=== PATIENT | female | born 1965 | race Caucasian/White ===

== ENCOUNTER 2017-02-21 17:36 | Emergency (ER) | payer OTHER ==
[2017-02-21 17:52] VITALS: BMI 28.3
[2017-02-21] MEDS ORDERED: KETOROLAC TROMETHAMINE 30 MG/1 ML VIAL IVPUSH ONE (18:13)
[2017-02-21] MEDS ORDERED: KETOROLAC TROMETHAMINE 30 MG/1 ML VIAL ONE (18:23)
[2017-02-21 18:48] LABS: BASOPHIL 0.3 % (0-2.0); EOSINOPHIL 1.1 % (0-4.5); MCH 29.5 pg (25.7-33.7); MEAN CELL VOLUME 86.9 fl (80-96); MEAN PLT VOLUME 10.3 fl (7.5-11.1); NEUTROPHILS 61.4 % (42.8-82.8); PLATELET COUNT 216 K/MM3 (134-434); RDW 12.7 % (11.6-15.6); WHITE BLOOD COUNT 8.4 K/mm3 (4.0-10.0)
--- NOTE | 2017-02-21 18:50 | PDOC ---
History of Present Illness - History of Present Illness Initial Comments: 02/21/17 19:27 The patient is a 51 year old female with history of hypertension and anemia who presents to the ED complaining of 1 day of constant, midsternal, pressure like chest pain. She states that she fell one week ago. Her pain is worse with bending over. The patient denies shortness of breath, palpitations, nausea, vomiting, or diaphoresis. She did not take anything for pain. She denies family history of cardiac disease. Stress test 1 year ago was negative. <Tiffany Cheema - Last Filed: 02/21/17 19:29> - General History Source: Patient Exam Limitations: No Limitations <Omid Sheikh - Last Filed: 02/21/17 20:20> - General Chief Complaint: Chest Pain Stated Complaint: CHEST PAIN/DIFF BREATHING Time Seen by Provider: 02/21/17 17:52 Past History <Tiffany Cheema - Last Filed: 02/21/17 19:29> - Past Medical History Anemia: Yes Diabetes: Yes (BORDER LINE) HTN: Yes Thyroid Disease: No - Surgical History Abdominal Surgery: No - Psycho/Social/Smoking Cessation Hx Suicidal Ideation: No Smoking History: Never smoked Have you smoked in the past 12 months: No Information on smoking cessation initiated: No Hx Alcohol Use: No Drug/Substance Use Hx: No Substance Use Type: None <Omid Sheikh - Last Filed: 02/21/17 20:20> - Past Medical History Allergies/Adverse Reactions: Allergies Allergy/AdvReac Type Severity Reaction Status Date / Time No Known Drug Allergies Allergy Verified 02/21/17 17:42 Home Medications: Ambulatory Orders Metoprolol Succinate [Toprol Xl -] 75 mg PO DAILY 01/26/15 Amlodipine Besylate [Norvasc -] 10 mg PO DAILY 02/21/17 Ibuprofen 600 mg PO Q6H PRN #20 tablet 02/21/17 Losartan Potassium 100 mg PO HS 02/21/17 Metformin HCl 500 mg PO BID #14 tablet 02/21/17 Review of Systems - Review of Systems Able to Perform ROS?: Yes Comments:: 02/21/17 19:31 GENERAL/CONSTITUTIONAL: No fever or chills. No weakness. HEAD, EYES, EARS, NOSE AND THROAT: No change in vision. No ear pain or discharge. No sore throat CARDIOVASCULAR: +Chest pain. No shortness of breath, lightheadedness, palpitations. RESPIRATORY: No cough, wheezing, or hemoptysis. GASTROINTESTINAL: No nausea, vomiting, diarrhea or constipation. GENITOURINARY: No dysuria, frequency, or change in urination. MUSCULOSKELETAL: No joint or muscle swelling or pain. No neck or back pain. SKIN: No rash NEUROLOGIC: No headache, vertigo, loss of consciousness, or change in strength/ sensation. ENDOCRINE: No increased thirst. No abnormal weight change. HEMATOLOGIC/LYMPHATIC: No anemia, easy bleeding, or history of blood clots. ALLERGIC/IMMUNOLOGIC: No hives or skin allergy. <Tiffany Cheema - Last Filed: 02/21/17 19:29> *Physical Exam - Vital Signs Last Vital Signs Temp Pulse Resp BP Pulse Ox 98.3 F 84 16 164/74 96 02/21/17 17:42 02/21/17 18:46 02/21/17 18:46 02/21/17 18:46 02/21/17 18:46 - Physical Exam Comments: 02/21/17 19:32 GENERAL: Awake, alert, and fully oriented, in no acute distress HEAD: No signs of trauma EYES: PERRLA, EOMI, sclera anicteric, conjunctiva clear ENT: Auricles normal inspection, hearing grossly normal, nares patent, oropharynx clear without exudates. Moist mucosa NECK: Normal ROM, supple, no lymphadenopathy, JVD, or masses LUNGS: Breath sounds equal, clear to auscultation bilaterally. No wheezes, and no crackles HEART: Midsternal chest pain reproducible to palpation. Regular rate and rhythm , normal S1 and S2, no murmurs, rubs or gallops ABDOMEN: Soft, nontender, normoactive bowel sounds. No guarding, no rebound. No masses EXTREMITIES: Normal range of motion, no edema. No clubbing or cyanosis. No cords, erythema, or tenderness NEUROLOGICAL: Cranial nerves II through XII grossly intact. Normal speech, normal gait SKIN: Warm, Dry, normal turgor, no rashes or lesions noted. <Tiffany Cheema - Last Filed: 02/21/17 19:29> - Vital Signs Last Vital Signs Temp Pulse Resp BP Pulse Ox 98.3 F 89 19 196/83 98 02/21/17 17:42 04/14/17 17:42 02/21/17 17:42 02/21/17 17:42 02/21/17 17:42 <Omid Sheikh - Last Filed: 02/21/17 20:20> Heart Score/ECG Review - History History: Slightly suspicious - Electrocardiogram EKG: Normal - Age Age: 45-65 - Risk Factors Risk Factors Heart Score: Yes Hx Hypertension Based on the list above the patient has:: 1-2 risk factors - Troponin Troponin: </= normal limit - Score Heart Score - Total: 2 #1 ECG reviewed & interpreted by me at: 17:45 02/21/17 18:46 NSR 78, Q wave III, no std/antionette, normal axis, normal intervals, QTC 440 msec <Omid Sheikh - Last Filed: 02/21/17 20:20> ED Treatment Course - LABORATORY CBC & Chemistry Diagram: 02/21/17 18:35 02/21/17 18:35 - ADDITIONAL ORDERS Additional order review: Laboratory Results 02/21/17 02/21/17 18:35 18:35 INR 0.96 PTT (Actin FS) 37.8 H Sodium 137 Potassium 4.5 Chloride 103 Carbon Dioxide 29 Anion Gap 5 L BUN 14 D Creatinine 0.6 Creat Clearance w eGFR > 60 Random Glucose 292 H D Calcium 9.6 Total Bilirubin 0.4 AST 43 H ALT 104 H Alkaline Phosphatase 221 H Creatine Kinase 101 Troponin I < 0.02 B-Natriuretic Peptide 32.75 Total Protein 7.3 Albumin 4.0 02/21/17 18:35 RBC 5.17 D MCV 86.9 MCHC 34.0 RDW 12.7 D MPV 10.3 Neutrophils % 61.4 Lymphocytes % 30.2 Monocytes % 7.0 Eosinophils % 1.1 Basophils % 0.3 - Medications Given in the ED: ED Medications Discontinued Medications Generic Name Dose Route Start Last Admin Trade Name Freq PRN Reason Stop Dose Admin Ketorolac Tromethamine 30 mg 02/21/17 18:13 02/21/17 18:41 Toradol Injection - IVPUSH 02/21/17 18:14 30 mg ONCE ONE Administration <Tiffany Cheema - Last Filed: 02/21/17 19:29> - LABORATORY CBC & Chemistry Diagram: 02/21/17 18:35 02/21/17 18:35 - RADIOLOGY Radiology Studies Ordered: Category Date Time Status CHEST PA & LAT [RAD] Stat Radiology 02/21/17 18:13 Ordered - Medications Given in the ED: ED Medications Discontinued Medications Generic Name Dose Route Start Last Admin Trade Name Jan PRN Reason Stop Dose Admin Ketorolac Tromethamine 30 mg 02/21/17 18:13 02/21/17 18:41 Toradol Injection - IVPUSH 02/21/17 18:14 30 mg ONCE ONE Administration <Omid Sheikh - Last Filed: 02/21/17 20:20> Medical Decision Making - Medical Decision Making 02/21/17 18:47 A portion of this note was documented by scribe services under my direction. I have reviewed the details of the note, within reason, and agree with the documentation with the following case summary and management plan written by me. Patient treated in the ED. Nursing notes are reviewed and incorporated into the medical decision-making. Vital signs reviewed. Peripheral IV access obtained by the nurse, laboratory studies are drawn and sent, reviewed and interpreted by myself. Vital Signs Temp Pulse Resp BP Pulse Ox 98.3 F 84 16 164/74 96 02/21/17 17:42 02/21/17 18:46 02/21/17 18:46 02/21/17 18:46 02/21/17 18:46 51-year-old female with past medical history of hypertension presents with chest pain since yesterday. Patient reports that she's been having this constant pressure-like chest pain worse with palpation of her chest. Patient did fall approximately one week ago. States that certain movements of her chest worsens the pain. Denies shortness of breath, nausea, vomiting. Has not taken any medications. Denies family history of cardiac disease. Denies smoking history. She has a walking stress test performed one year ago that was negative. Patient's chest pain story is atypical. She has reproducible midsternal chest pain is likely muscle skeletal. We'll send one troponin and labs. If workup is negative and the patient reports feeling better after Toradol, we'll discharge with NSAIDs and have the patient follow with the primary care physician. 02/21/17 20:05 CBC, BMP 02/21/17 18:35 02/21/17 18:35 CMP Sodium 137 mmol/L (136-145) 02/21/17 18:35 Potassium 4.5 mmol/L (3.5-5.1) 02/21/17 18:35 Chloride 103 mmol/L (98-107) 02/21/17 18:35 Carbon Dioxide 29 mmol/L (21-32) 02/21/17 18:35 Anion Gap 5 (8-16) L 02/21/17 18:35 BUN 14 mg/dL (7-18) D 02/21/17 18:35 Creatinine 0.6 mg/dL (0.55-1.02) 02/21/17 18:35 Creat Clearance w eGFR > 60 (>60) 02/21/17 18:35 Random Glucose 292 mg/dL (74-106) H D 02/21/17 18:35 Calcium 9.6 mg/dL (8.5-10.1) 02/21/17 18:35 Total Bilirubin 0.4 mg/dL (0.2-1.0) 02/21/17 18:35 AST 43 U/L (15-37) H 02/21/17 18:35 ALT 104 U/L (12-78) H 02/21/17 18:35 Alkaline Phosphatase 221 U/L (45-117) H 02/21/17 18:35 Creatine Kinase 101 IU/L (26-192) 02/21/17 18:35 Troponin I < 0.02 ng/ml (0.00-0.05) 02/21/17 18:35 B-Natriuretic Peptide 32.75 pg/ml (5-125) 02/21/17 18:35 Total Protein 7.3 g/dl (6.4-8.2) 02/21/17 18:35 Albumin 4.0 g/dl (3.4-5.0) 02/21/17 18:35 02/21/17 20:06 Chest x-ray reviewed. No acute findings. Patient reports feeling better after Toradol. It is noted that the patient sugars 292. When addressed, the patient reports that she's under current evaluation for diabetes has an appointment this upcoming Friday. I reported that I will start metformin for the patient. Patient verbalized understand agrees with plan. The chest pain is likely muscle skeletal. NSAIDs and follow-up. I discussed the physical exam findings, ancillary test results and final diagnoses with the patient. I answered all of the patient's questions. The patient was satisfied with the care received and felt comfortable with the discharge plan and treatment plan. The patient will call their primary care physician within 24 hours to arrange follow-up and will return to the Emergency Department with any new, persistant or worsening symptoms. <Omid Sheikh - Last Filed: 02/21/17 20:20> *DC/Admit/Observation/Transfer - Attestations Scribe Attestion: 02/21/17 19:33 Documentation prepared by Tiffany Cheema, acting as medical associate for Omid Sheikh MD. <Tiffany Cheema - Last Filed: 02/21/17 19:29> - Discharge Dispostion Admit: No <Omid Sheikh - Last Filed: 02/21/17 20:20> Diagnosis at time of Disposition: Atypical chest pain, Hyperglycemia - Discharge Dispostion Disposition: HOME Condition at time of disposition: Improved - Prescriptions Prescriptions: Ibuprofen 600 mg PO Q6H PRN #20 tablet PRN Reason: Pain Metformin HCl 500 mg PO BID #14 tablet - Referrals Referrals: Nevaeh Emery MD [Primary Care Provider] - - Patient Instructions Printed Discharge Instructions: DI for Atypical Chest Pain, DI for Hyperglycemia -- Adult Additional Instructions: Take 600 mg ibuprofen every 6 hours as needed for pain. This is likely musculoskeletal pain. However, your sugars are elevated. Please start taking the metformin 500 mg every 12 hours for your elevated sugars. Please drink plenty of fluids and follow up with your doctor. Print Language: ANGOLAN
[2017-02-21 19:00] LABS: INR 0.96 (0.82-1.09); PROTHROMBIN TIME (PATIENT) 10.5 SEC (9.98-11.88)
[2017-02-21 19:03] LABS: ACTIVATED PTT 37.8 SECONDS (26.9-34.4)
[2017-02-21 19:13] LABS: ANION GAP 5 (8-16); BILIRUBIN,TOTAL 0.4 mg/dL (0.2-1.0); CALCIUM 9.6 mg/dL (8.5-10.1); CO2 29 mmol/L (21-32); CREATININE 0.6 mg/dL (0.55-1.02); GLUCOSE,RANDOM 292 mg/dL (74-106); SGOT/AST 43 U/L (15-37); SGPT/ALT 104 U/L (12-78); TOT PROT 7.3 g/dl (6.4-8.2)
[2017-02-21 19:16] LABS: ALK PHOS 221 U/L (45-117); TROPONIN I < 0.02 ng/ml (0.00-0.05)
[2017-02-21] MEDS ORDERED: metFORMIN HCL 500 MG TABLET (FP) PO ONE (20:06)
[2017-02-21] MEDS ORDERED: metFORMIN HCL 500 MG TABLET (FP) ONE (20:44)
[2017-02-22 05:33] VITALS: BP 162/72; PULSE 80; TEMP 98
--- NOTE | 2017-02-23 14:27 | EKG ---
Test Reason : Blood Pressure : / mmHG Vent. Rate : 078 BPM Atrial Rate : 078 BPM P-R Int : 140 ms QRS Dur : 088 ms QT Int : 386 ms P-R-T Axes : 053 014 047 degrees QTc Int : 440 ms NORMAL SINUS RHYTHM ABNORMAL ECG WHEN COMPARED WITH ECG OF 09-SEP-2003 11:10, NO SIGNIFICANT CHANGE WAS FOUND BASELINE ARTIFACT Confirmed by GRAYSON SON MD ([id number]) on 02/23/2017 2:27:22 PM Referred By: Confirmed By:GRAYSON SON MD
== END 2017-02-21 20:56 | disposition home or self-care (01) ==
LOC: JER 17:36
PROC: 3E0333Z Introduction of Anti-inflammatory into Peripheral Vein, Percutaneous Approach (ICD-10-PCS; principal; 2017-02-21)
DX: R07.89 Other chest pain (principal); E11.65 Type 2 diabetes mellitus with hyperglycemia; Z79.84 Long term (current) use of oral hypoglycemic drugs; I10 Essential (primary) hypertension
CPT/HCPCS: 36415; 71020-TC; 80053; 82550; 83880; 84484; 85025; 85610; 85730; 93005; 93010; 96374; 99285-25

== ENCOUNTER 2017-04-09 11:46 | Emergency (ER) | payer OTHER ==
[2017-04-09 11:50] VITALS: BP 151/76; BMI 28.7
[2017-04-09] MEDS ORDERED: ACETAMINOPHEN 325 MG TABLET (FP) PO ONE (12:34)
--- NOTE | 2017-04-09 12:34 | PDOC ---
History of Present Illness - General Chief Complaint: Cold Symptoms Stated Complaint: FEVER, BODYACHE Time Seen by Provider: 04/09/17 12:26 History Source: Patient Exam Limitations: No Limitations - History of Present Illness Initial Comments: 04/09/17 12:38 51 yr female with c/o fever sudden onset last night body aches low back pain sore throat and diarrhea. neg vomiting. Pt has no abd pain. history of DM, HTN. Timing/Duration: 24 hours Severity: mild Associated Symptoms: reports: fever/chills, nausea/vomiting Past History - Past Medical History Allergies/Adverse Reactions: Allergies Allergy/AdvReac Type Severity Reaction Status Date / Time No Known Drug Allergies Allergy Verified 04/09/17 11:50 Home Medications: Ambulatory Orders Metoprolol Succinate [Toprol Xl -] 75 mg PO DAILY 01/26/15 Amlodipine Besylate [Norvasc -] 10 mg PO DAILY 02/21/17 Losartan Potassium 100 mg PO HS 02/21/17 Metformin HCl 500 mg PO BID #14 tablet 02/21/17 Levofloxacin [Levaquin] 750 mg PO DAILY #5 tab 04/09/17 Anemia: Yes Diabetes: Yes (BORDER LINE) HTN: Yes Thyroid Disease: No - Surgical History Abdominal Surgery: No - Psycho/Social/Smoking Cessation Hx Anxiety: No Suicidal Ideation: No Smoking History: Never smoked Have you smoked in the past 12 months: No Hx Alcohol Use: No Drug/Substance Use Hx: No Substance Use Type: None Review of Systems - Review of Systems Able to Perform ROS?: Yes Is the patient limited Uzbek proficient: No Constitutional: Yes: Symptoms Reported, Fever HEENTM: Yes: Throat Pain : No: Symptoms Reported, Burning, Dysuria, Discharge, Frequency, Urgency Musculoskeletal: Yes: Back Pain *Physical Exam - Vital Signs Last Vital Signs Temp Pulse Resp BP Pulse Ox 100.1 F H 125 H 20 151/76 97 04/09/17 11:47 04/09/17 11:47 04/09/17 11:47 04/09/17 11:47 04/09/17 11:47 - Physical Exam General Appearance: Yes: Nourished, Appropriately Dressed HEENT: positive: EOMI, BRISSA, TMs Normal, Pharyngeal Erythema Neck: positive: Supple, Other (FROM neg neck pain or nuchal rigidity). negative : Tender, Decreased range of motion, Lymphadenopathy (R), Lymphadenopathy (L), Rigidity, Tender midline Respiratory/Chest: positive: Lungs Clear, Normal Breath Sounds. negative: Chest Tender, Crackles, Wheezing Cardiovascular: positive: Regular Rhythm, Regular Rate, Tachycardia Gastrointestinal/Abdominal: positive: Normal Bowel Sounds, Soft. negative: Tender Musculoskeletal: positive: Normal Inspection. negative: CVA Tenderness, Vertebral Tenderness Extremity: positive: Normal Capillary Refill, Normal Inspection, Normal Range of Motion Integumentary: positive: Normal Color, Dry, Warm Neurologic: positive: Fully Oriented, Alert, Normal Mood/Affect, Normal Response , Motor Strength 03/14 ED Treatment Course - LABORATORY CBC & Chemistry Diagram: 04/09/17 15:25 04/09/17 15:25 Medical Decision Making - Medical Decision Making 04/09/17 12:43 cc: fever, sore throat body aches, low back pain started last night no sick contacts at home non toxic appearing female denies urinary complaints, states "some loose stool" during the night last meal was [place] [employer] will check UA, rapid strep flu tylenol for fever, pt is drinking well 04/09/17 15:11 pt feels better questionable infiltrate on CXR. will treat with azithromcycin for 5 days and strict follow up with PMD pt agrees with plan is tolerating po well. vitals are stable 04/09/17 15:12 04/09/17 15:13 04/09/17 15:30 04/12/17 12:45 spoke with pt today as courtesy follow up call. Pt is feeling much better, no fever. *DC/Admit/Observation/Transfer Diagnosis at time of Disposition: Upper respiratory infection Qualifiers: URI type: unspecified URI Qualified Code(s): J06.9 - Acute upper respiratory infection, unspecified - Discharge Dispostion Disposition: HOME Condition at time of disposition: Fair - Prescriptions Prescriptions: Levofloxacin [Levaquin] 750 mg PO DAILY #5 tab - Referrals Referrals: Nevaeh Emery MD [Primary Care Provider] - - Patient Instructions Additional Instructions: Please follow with your PMD tomorrow for follow up take the antibiotic as prescribed drink pleanty of water to stay hydrated take motrin 600mg every 6hrs for fever and you can take tylenol 650mg every 4hrs for fever Return to ER for any worsening symptoms
[2017-04-09] MEDS ORDERED: ACETAMINOPHEN 325 MG TABLET (FP) ONE (12:44)
[2017-04-09 13:25] LABS: URINE APPEARANCE CLEAR; URINE BILIRUBIN NEGATIVE (NEGATIVE); URINE BLOOD NEGATIVE (NEGATIVE); URINE COLOR YELLOW; URINE GLUCOSE (UA) 1+ (NEGATIVE); URINE KETONE TRACE (NEGATIVE); URINE NITRITE NEGATIVE (NEGATIVE); URINE UROBILINOGEN NEGATIVE E.U./dl (0.2-1.0)
[2017-04-09 13:35] LABS: URINE LEUK ESTERASE TRACE (NEGATIVE); URINE PROTEIN 1+ (NEGATIVE)
[2017-04-09 13:37] LABS: URINE MUCUS RARE; URINE RBC 1 /hpf (0-3); URINE WBC 3 /hpf (3-5)
[2017-04-09] MEDS ORDERED: IBUPROFEN 600 MG TABLET (FP) PO ONE ×2 (15:11→15:13)
[2017-04-09 15:34] LABS: BASOPHIL 0.5 % (0-2.0); MCH 29.2 pg (25.7-33.7); MCHC 33.9 g/dl (32.0-36.0); MEAN CELL VOLUME 86.1 fl (80-96); MEAN PLT VOLUME 9.4 fl (7.5-11.1); NEUTROPHILS 84.1 % (42.8-82.8); PLATELET COUNT 215 K/MM3 (134-434); RDW 13.3 % (11.6-15.6); WHITE BLOOD COUNT 16.3 K/mm3 (4.0-10.0)
[2017-04-09 15:39] VITALS: PULSE 100; TEMP 99.3
[2017-04-09 16:04] LABS: ALBUMIN 4.2 g/dl (3.4-5.0); ANION GAP 9 (8-16); BILIRUBIN,TOTAL 0.5 mg/dL (0.2-1.0); CALCIUM 10.4 mg/dL (8.5-10.1); CO2 28 mmol/L (21-32); CREATININE 0.8 mg/dL (0.55-1.02); GLUCOSE,RANDOM 80 mg/dL (74-106); SGOT/AST 33 U/L (15-37); SGPT/ALT 98 U/L (12-78); TOT PROT 7.4 g/dl (6.4-8.2)
[2017-04-09 16:05] LABS: ALK PHOS 138 U/L (45-117)
--- NOTE | 2017-04-11 18:24 | PDOC ---
Patient Follow-up (Call Back) - Post ED Follow - Up Condition at time of discharge: Fair Disposition at time of original discharge: HOME Reason for Call Back: Abnwl. Microbiology (Patient with positive urine culture, protease be she's susceptible to Levaquin which patient was placed on, proper treatment.)
== END 2017-04-09 16:34 | disposition home or self-care (01) ==
LOC: JERFT 11:46
DX: J06.9 Acute upper respiratory infection, unspecified (principal); I10 Essential (primary) hypertension; D64.9 Anemia, unspecified
CPT/HCPCS: 36415; 71020-TC; 80053; 81003; 81015; 84703; 85025; 87040; 87070; 87086; 87186; 87430; 87804; 99282-25

== ENCOUNTER 2018-10-12 07:45 | Day surgery (SDC) | payer OTHER ==
[2018-10-09 16:08] VITALS: BMI 28.0
[2018-10-12 08:06] LABS: BASO % 0.8 % (0-2.0); EOS % 0.9 % (0-4.5); HEMATOCRIT 40.4 % (32.4-45.2); HEMOGLOBIN 14.1 GM/dL (10.7-15.3); LYMPH % 35.2 % (8-40); MCH 30.7 pg (25.7-33.7); MCHC 34.9 g/dl (32.0-36.0); MEAN PLT VOLUME 9.7 fl (7.5-11.1); MONO % 6.2 % (3.8-10.2); NEUT % 56.9 % (42.8-82.8); PLATELET COUNT 271 K/MM3 (134-434); RDW 12.9 % (11.6-15.6); WHITE BLOOD COUNT 8.5 K/mm3 (4.0-10.0)
[2018-10-12 08:07] VITALS: TEMP 98.3
[2018-10-12 08:29] LABS: INR 0.99 (0.83-1.09); PROTHROMBIN TIME (PATIENT) 11.7 SEC (9.7-13.0)
[2018-10-12 16:02] VITALS: BP 124/64; PULSE 78
--- NOTE | 2018-10-13 16:13 | PATH ---
Surgical Pathology Report Patient Name: BETH LOTT [facility]. Rec. #: [id number] /Age/Gender: 1965 (Age: 53) / F Account: [id number] Location: RADIOLOGY INTER Taken: 10/12/2018 Received: 10/12/2018 Reported: 10/13/2018 Physicians: Rachid Plascencia M.D. Specimen(s) Received LIVER TISSUE Clinical History 53-year-old female with abnormal LFTs Final Diagnosis LIVER, NEEDLE CORE BIOPSY: MACROVESICULAR STEATOHEPATITIS, MILD (GRADE 1 OF 3), WITH FOCAL PORTAL AND MINIMAL PERIVENULAR FIBROSIS IDENTIFIED WITH TRICHROME STAIN (STAGE I OF 4). RETICULIN STAIN HIGHLIGHTS AREAS WITH ALTERATION OF THE NORMAL SINUSOIDAL ARCHITECTURE. IRON STAIN IS NEGATIVE FOR SIDEROSIS. PAS STAINS WITH AND WITHOUT DIASTASE ARE NONCONTRIBUTORY. NO NEOPLASTIC INFILTRATES ARE IDENTIFIED. NO GRANULOMAS ARE IDENTIFIED. Comment: This case was discussed with Dr. Emery on October 13, 2018. Electronically Signed Lawrence Jacobson M.D. Gross Description Received in formalin labeled "liver tissue," are 2 suárez, cylindrical portions of soft tissue measuring 1.5 and 1.7 cm in length and averaging 0.1 cm diameter. The specimens are submitted in toto in one cassette. 10/12/201810/12/2018
== END 2018-10-12 15:00 | disposition home or self-care (01) ==
LOC: JRADIR 07:45 → EDSTATUS 09:00 → JRADIR 15:00
PROVIDERS: ATTEND Internal Medicine
PROC: 0FB03ZX Excision of Liver, Percutaneous Approach, Diagnostic (ICD-10-PCS; principal; 2018-10-12)
DX: K75.81 Nonalcoholic steatohepatitis (NASH) (principal)
CPT/HCPCS: 36415; 76942-TC; 85025; 85610; 88307-TC; 88313-TC

== ENCOUNTER 2019-02-16 23:38 | Emergency (ER) | payer OTHER ==
[2019-02-17 00:59] VITALS: BP 139/78; PULSE 105; TEMP 98.6; BMI 28.3
--- NOTE | 2019-02-17 02:08 | PDOC ---
History of Present Illness - General Chief Complaint: Cold Symptoms Stated Complaint: FEVER Time Seen by Provider: 02/17/19 00:49 History Source: Patient Exam Limitations: No Limitations Past History - Past Medical History Allergies/Adverse Reactions: Allergies Allergy/AdvReac Type Severity Reaction Status Date / Time No Known Drug Allergies Allergy Verified 02/17/19 01:00 Home Medications: Ambulatory Orders Metoprolol Succinate [Toprol Xl -] 75 mg PO HS 01/26/15 Amlodipine Besylate [Norvasc -] 10 mg PO HS 02/21/17 Losartan Potassium 100 mg PO DAILY 02/21/17 Chlorthalidone 25 mg PO DAILY 10/09/18 Glimepiride 4 mg PO DAILY 10/09/18 metFORMIN HCL [Metformin HCl] 1,000 mg PO BID 10/09/18 Anemia: No Asthma: No Cancer: No Cardiac Disorders: No CVA: No COPD: No CHF: No Dementia: No Diabetes: Yes (niddm) GI Disorders: No Disorders: Yes (stress incontinence) HTN: Yes Hypercholesterolemia: No Liver Disease: No Seizures: No Thyroid Disease: No - Surgical History Abdominal Surgery: No Appendectomy: No Cardiac Surgery: No Cholecystectomy: No Lung Surgery: No Neurologic Surgery: No Orthopedic Surgery: Yes (left ankle, age 17) - Suicide/Smoking/Psychosocial Hx Smoking History: Never smoked Have you smoked in the past 12 months: No Information on smoking cessation initiated: No Hx Alcohol Use: No Drug/Substance Use Hx: No Substance Use Type: None Hx Substance Use Treatment: No *Physical Exam - Vital Signs Last Vital Signs Temp Pulse Resp BP Pulse Ox 98.6 F 105 H 16 139/78 97 02/16/19 23:45 02/16/19 23:45 02/16/19 23:45 02/16/19 23:45 02/16/19 23:45 - Physical Exam General Appearance: No: Apparent Distress HEENT: positive: Pharyngeal Erythema (mild). negative: Tonsillar Exudate, Tonsillar Erythema, Nasal Congestion, Rhinorrhea, Sinus Tenderness Respiratory/Chest: positive: Lungs Clear, Normal Breath Sounds. negative: Respiratory Distress Cardiovascular: positive: Regular Rhythm, Regular Rate, S1, S2. negative: Murmur Gastrointestinal/Abdominal: positive: Normal Bowel Sounds, Soft. negative: Tender, Distended, Guarding, Rebound Integumentary: positive: Normal Color Neurologic: positive: Alert, Normal Mood/Affect Medical Decision Making - Medical Decision Making 53 y/o F hx of HTN, DM presents with subjective fever which started 2 days ago along with chills, bodyaches, throat pain, mild dry cough, rhinorrhea, congestion and occasional nausea. Took Tylenol at 9 PM prior to coming here. Denies sob, cp, abd pain, vomiting Flu negative patient appears well Likely viral syndrome 02/17/19 02:06 *DC/Admit/Observation/Transfer Diagnosis at time of Disposition: Viral URI - Discharge Dispostion Disposition: HOME Condition at time of disposition: Stable Decision to Admit order: No - Referrals Referrals: Nevaeh Emery MD [Primary Care Provider] - 2 Days - Patient Instructions Printed Discharge Instructions: DI for Viral Upper Respiratory Infection -- Adult Additional Instructions: Thank you for choosing [facility]. It was a pleasure taking care of you. You were found to be negative for flu Alternate between Tylenol and Motrin for fever Follow-up with your doctor in 2 days Return to the Emergency Department if your symptoms worsen or persist or have other concerning symptoms. - Post Discharge Activity
== END 2019-02-17 02:13 | disposition home or self-care (01) ==
LOC: JER 23:38
DX: J06.9 Acute upper respiratory infection, unspecified (principal); B97.89 Other viral agents as the cause of diseases classified elsewhere; I10 Essential (primary) hypertension; E11.9 Type 2 diabetes mellitus without complications; Z79.84 Long term (current) use of oral hypoglycemic drugs
CPT/HCPCS: 87804; 99281-25

== ENCOUNTER → 2019-02-25 | Day surgery (SDC) | payer OTHER ==
--- NOTE | 2019-02-26 15:35 | PATH ---
Surgical Pathology Report Patient Name: BETH LOTT [facility]. Rec. #: [id number] /Age/Gender: 1965 (Age: 53) / F Account: [id number] Location: [facility] Taken: 02/25/2019 Received: 02/25/2019 Reported: 02/26/2019 Physicians: Amado Monet M.D. Specimen(s) Received A: LEFT BREAST SPECIMEN-WITH CALCIFICATIONS B: LEFT BREAST SPECIMEN -WITHOUT CALCIFICATIONS Clinical History Nonpalpable lesion Mammographic findings: Microcalcification, suspicious Final Diagnosis A. BREAST, LEFT, WITH CALCIFICATIONS, STEREOTACTIC BIOPSY: ATYPICAL DUCTAL HYPERPLASIA (ADH), FOCAL ATYPICAL LOBULAR HYPERPLASIA (ALH) AND COLUMNAR CELL CHANGE/HYPERPLASIA WITH ASSOCIATED CALCIFICATIONS. (SEE NOTE) ADDITIONAL COARSE CALCIFICATIONS ARE PRESENT IN ASSOCIATION WITH SCLEROTIC STROMA. Note: E-Cadherin immunostain (performed at [facility]) demonstrates positivity in foci of ADH, while foci of ALH are negative. These findings support the diagnosis. B. BREAST, LEFT, WITHOUT CALCIFICATIONS, STEREOTACTIC BIOPSY: BENIGN BREAST TISSUE SHOWING SCLEROSING ADENOSIS, CYSTIC APOCRINE METAPLASIA AND COLUMNAR CELL CHANGE WITH FEW ASSOCIATED CALCIFICATIONS. Electronically Signed Margarita Alvarado M.D. Gross Description A. Received in formalin labeled "left breast with calcifications," are 4 suárez-yellow, cylindrical portions of fibroadipose tissue ranging from 2.0-3.5 cm in length and averaging 0.3 cm in diameter. The specimens are submitted in toto in one cassette. B. Received in formalin labeled "left breast without calcifications," are 3 suárez-yellow, cylindrical portions of fibroadipose tissue ranging from 0.7-4.0 cm in length and averaging 0.3 cm in diameter. The specimens are submitted in toto in one cassette. Time to formalin fixation: 5 minutes Total formalin fixation time: Approximately [address] hours. 02/25/2019 [facility]02/25/2019
== END | disposition home or self-care (01) ==
LOC: FMAMMOTONE 10:39
PROVIDERS: ATTEND Surgery
PROC: 0HBU3ZX Excision of Left Breast, Percutaneous Approach, Diagnostic (ICD-10-PCS; principal; 2019-02-25)
DX: N60.92 Unspecified benign mammary dysplasia of left breast (principal); N60.89 Other benign mammary dysplasias of unspecified breast; N64.89 Other specified disorders of breast; R92.1 Mammographic calcification found on diagnostic imaging of breast
CPT/HCPCS: 19081; 87899; 88305-TC; 88342-TC; A4648

== ENCOUNTER → 2019-06-30 | Day surgery (SDC) | payer OTHER | END | disposition home or self-care (01) | LOC: JRADIR 09:56 | PROVIDERS: ATTEND Internal Medicine Endocrinology, Diabetes & Metabolism | PROC: 0GJK3ZZ Inspection of Thyroid Gland, Percutaneous Approach (ICD-10-PCS; principal; 2019-06-30) | DX: E04.1 Nontoxic single thyroid nodule (principal); Z53.8 Procedure and treatment not carried out for other reasons | CPT/HCPCS: 10005; 76536-TC ==

== ENCOUNTER → 2019-09-02 | Day surgery (SDC) | payer OTHER ==
--- NOTE | 2019-09-03 15:04 | PATH ---
Surgical Pathology Report Patient Name: BETH LOTT [facility]. Rec. #: [id number] /Age/Gender: 1965 (Age: 54) / F Account: [id number] Location: RADIOLOGY ULTRA Taken: 09/02/2019 Received: 09/02/2019 Reported: 09/03/2019 Physicians: Amado Viramontes M.D. Specimen(s) Received RIGHT BREAST CORE BIOPSY Clinical History History of left breast malignancy Nonpalpable lesion Ultrasound findings: Suspicious Final Diagnosis RIGHT BREAST RETROAREOLAR INTRADUCTAL MASS, ULTRASOUND GUIDED CORE BIOPSY: FRAGMENTS OF CYST/ DUCTAL WALL LINED BY BENIGN DUCAL EPITHELIUM WITH PERIDUCTAL FIBROSIS, AND AMORPHOUS MATERIAL AGGREGATE CONSISTENT WITH INTRADUCTAL/CYSTIC CONTENTS. REMAINING BENIGN AND BREAST TISSUE SHOWING FOCAL USUAL DUCTAL HYPERPLASIA (UDH), DILATED DUCTS, AND STROMAL FIBROSIS. Electronically Signed Anastasia Luis M.D. Gross Description Received in formalin labeled "right 12:00 retro/subareolar," are 7 suárez-yellow, cylindrical portions of fibroadipose tissue ranging from 0.3-1.2 cm in length and averaging 0.1 cm in diameter. The specimens are submitted in toto in one cassette. Time to formalin fixation: Less than one minute Total formalin fixation time: Approximately 7 hours. /09/02/2019 [place]09/02/2019
== END | disposition home or self-care (01) ==
LOC: JMAMMO-SUR 10:41
PROVIDERS: ATTEND Internal Medicine Hematology & Oncology
PROC: 0H9T3ZX Drainage of Right Breast, Percutaneous Approach, Diagnostic (ICD-10-PCS; principal; 2019-09-02)
DX: D24.1 Benign neoplasm of right breast (principal); N60.31 Fibrosclerosis of right breast
CPT/HCPCS: 19083; 87899; 88305-TC; A4648

== ENCOUNTER → 2020-11-23 | Day surgery (SDC) | payer OTHER | END | disposition home or self-care (01) | LOC: FMAMMOTONE 10:00 | PROVIDERS: ATTEND Internal Medicine Hematology & Oncology | PROC: 0HBU3ZX Excision of Left Breast, Percutaneous Approach, Diagnostic (ICD-10-PCS; principal; 2020-11-23) | DX: N60.12 Diffuse cystic mastopathy of left breast (principal); N60.22 Fibroadenosis of left breast; N60.82 Other benign mammary dysplasias of left breast; N60.92 Unspecified benign mammary dysplasia of left breast; N64.1 Fat necrosis of breast; N64.89 Other specified disorders of breast; Z85.3 Personal history of malignant neoplasm of breast; R92.1 Mammographic calcification found on diagnostic imaging of breast | CPT/HCPCS: 19081; 76098-TC-FY; 87899; 88305-TC; 88342-TC; A4648 ==

== ENCOUNTER → 2020-12-21 | Day surgery (SDC) | payer OTHER | END | disposition home or self-care (01) | LOC: FRADUS-SUR 08:50 | PROVIDERS: ATTEND Surgery | PROC: 0H9U3ZX Drainage of Left Breast, Percutaneous Approach, Diagnostic (ICD-10-PCS; principal; 2020-12-21) | DX: N60.22 Fibroadenosis of left breast (principal); N60.92 Unspecified benign mammary dysplasia of left breast; Z85.3 Personal history of malignant neoplasm of breast | CPT/HCPCS: 19085; 77065-TC; 88305-TC; 88341-TC; 88342-TC; A4648; A9579; C1887 ==

== ENCOUNTER 2021-03-09 06:59 | Day surgery (SDC) | payer OTHER ==
[2021-03-09] MEDS ORDERED: DENOSUMAB 60 MG/ML DISP.SYRIN SQ ONE (10:00)
[2021-03-09 15:03] VITALS: BP 130/45; PULSE 83; TEMP 98.1
== END 2021-03-09 13:55 | disposition home or self-care (01) ==
LOC: JONCCHEMO 06:59
PROVIDERS: ATTEND Internal Medicine Hematology & Oncology
PROC: 3E013GC Introduction of Other Therapeutic Substance into Subcutaneous Tissue, Percutaneous Approach (ICD-10-PCS; principal; 2021-03-09)
DX: C50.919 Malignant neoplasm of unspecified site of unspecified female breast (principal); M81.0 Age-related osteoporosis without current pathological fracture; Z76.89 Persons encountering health services in other specified circumstances
CPT/HCPCS: 96372; J0897

== ENCOUNTER 2021-09-07 07:43 | Day surgery (SDC) | payer OTHER ==
[2021-09-07] MEDS ORDERED: DENOSUMAB 60 MG/ML DISP.SYRIN SQ ONE (14:45)
[2021-09-07 17:27] VITALS: BP 138/76; PULSE 79; TEMP 98
== END 2021-09-07 14:50 | disposition home or self-care (01) ==
LOC: JONCCHEMO 07:43
PROVIDERS: ATTEND Internal Medicine Hematology & Oncology
PROC: 3E013GC Introduction of Other Therapeutic Substance into Subcutaneous Tissue, Percutaneous Approach (ICD-10-PCS; principal; 2021-09-07)
DX: C50.919 Malignant neoplasm of unspecified site of unspecified female breast (principal); M81.0 Age-related osteoporosis without current pathological fracture; Z76.89 Persons encountering health services in other specified circumstances
CPT/HCPCS: 36415; 82310; 96372; J0897

== ENCOUNTER 2022-02-11 10:56 | Emergency (ER) | payer OTHER ==
[2022-02-11 11:19] VITALS: BP 149/51; PULSE 98; TEMP 98.8; BMI 28.3
[2022-02-12 16:09] LABS: SARS-CoV-2 NAA Not Detected (Not Detected)
== END 2022-02-11 13:17 | disposition home or self-care (01) ==
LOC: JER 10:56
DX: J06.9 Acute upper respiratory infection, unspecified (principal); R05.1 Acute cough
CPT/HCPCS: 99283-25; C9803-CS; U0003; U0005

== ENCOUNTER 2022-03-08 07:50 | Day surgery (SDC) | payer OTHER ==
[2022-03-08] MEDS ORDERED: DENOSUMAB 60 MG/ML DISP.SYRIN SQ ONE (10:00)
[2022-03-08 16:50] VITALS: BP 139/69; PULSE 74
[2022-03-08 16:55] VITALS: TEMP 98.4
== END 2022-03-08 16:00 | disposition home or self-care (01) ==
LOC: JONCCHEMO 07:50
PROVIDERS: ATTEND Internal Medicine Hematology & Oncology
DX: Z51.11 Encounter for antineoplastic chemotherapy (principal); D05.92 Unspecified type of carcinoma in situ of left breast; M81.0 Age-related osteoporosis without current pathological fracture
CPT/HCPCS: 96401; J0897

== ENCOUNTER 2022-07-16 15:13 | Emergency (ER) | payer OTHER ==
[2022-07-16 15:25] VITALS: BMI 26.5
[2022-07-16 16:50] VITALS: BP 140/68; PULSE 104; RESP 20; TEMP 98
[2022-07-16 18:52] LABS: THROAT:GRP A STREP NOT DETECTED (NOTDETECTED)
== END 2022-07-16 16:50 | disposition home or self-care (01) ==
LOC: JER 15:13
DX: R50.9 Fever, unspecified (principal); R07.0 Pain in throat; Z11.52 Encounter for screening for COVID-19
CPT/HCPCS: 0241U-QW; 87651; 99283-25

== ENCOUNTER 2022-10-04 16:33 | Day surgery (SDC) | payer OTHER ==
[~2022-10-04 16:33] MED LIST: DENOSUMAB 60 MG/ML DISP.SYRIN SQ ONE
[2022-10-04 17:04] VITALS: BP 148/67; PULSE 85; RESP 20; TEMP 98.7
== END 2022-10-04 17:11 | disposition home or self-care (01) ==
LOC: J7W 16:33 → JONCCHEMO 16:33
PROVIDERS: ATTEND Internal Medicine
PROC: 3E013GC Introduction of Other Therapeutic Substance into Subcutaneous Tissue, Percutaneous Approach (ICD-10-PCS; principal; 2022-10-04)
DX: D05.12 Intraductal carcinoma in situ of left breast (principal); M81.0 Age-related osteoporosis without current pathological fracture; Z76.89 Persons encountering health services in other specified circumstances
CPT/HCPCS: 96372; J0897

== ENCOUNTER 2023-04-18 15:18 | Day surgery (SDC) | payer OTHER ==
[~2023-04-18 15:18] MED LIST changes: -DENOSUMAB 60 MG/ML DISP.SYRIN SQ ONE; +ZOLEDRONIC ACID/MAN/WATER 5 MG/100 ML INFUS..BTL IVPB ONE
[2023-04-18 16:01] VITALS: RESP 18; TEMP 98.9
[2023-04-18 16:09] VITALS: BP 127/63; PULSE 80
== END 2023-04-18 16:14 | disposition home or self-care (01) ==
LOC: JONCCHEMO 15:18 → J7W 15:19 → JONCCHEMO 16:14
PROVIDERS: ATTEND Internal Medicine Hematology & Oncology
PROC: 3E033GC Introduction of Other Therapeutic Substance into Peripheral Vein, Percutaneous Approach (ICD-10-PCS; principal; 2023-04-18)
DX: D05.10 Intraductal carcinoma in situ of unspecified breast (principal); M81.6 Localized osteoporosis [Lequesne]
CPT/HCPCS: 96365; J3489

== ENCOUNTER 2023-04-19 07:21 | Emergency (ER) | payer OTHER ==
[2023-04-19 07:40] VITALS: RESP 18; TEMP 98.5; BMI 28.3
[2023-04-19] MEDS ORDERED: KETOROLAC TROMETHAMINE 15 MG/ML VIAL IVPUSH ONE (08:22)
[2023-04-19] MEDS ORDERED: ONDANSETRON 4 MG/2 ML VIAL IVPUSH ONE (08:22)
[2023-04-19] MEDS ORDERED: SODIUM CHLORIDE 0.9% 500 ML INFUS.BAG IV ONE (08:22)
[2023-04-19] MEDS ORDERED: KETOROLAC TROMETHAMINE 15 MG/ML VIAL ONE (08:34)
[2023-04-19] MEDS ORDERED: ONDANSETRON 4 MG/2 ML VIAL ONE (08:34)
[2023-04-19 09:06] LABS: VENOUS BASE EXCESS -2.6 mmol/L (-2-2); VENOUS O2 SATURATION 35.2 % (70-80); VENOUS PCO2 39.4 mmHg (38-52); VENOUS PH 7.372 (7.310-7.410)
[2023-04-19 09:13] LABS: URINE APPEARANCE TURBID; URINE BILIRUBIN NEGATIVE (NEGATIVE); URINE COLOR YELLOW; URINE GLUCOSE (UA) TRACE (NEGATIVE); URINE KETONE NEGATIVE (NEGATIVE); URINE LEUK ESTERASE NEGATIVE (NEGATIVE); URINE NITRITE NEGATIVE (NEGATIVE); URINE PROTEIN NEGATIVE (NEGATIVE); URINE UROBILINOGEN 0.2 mg/dL (0.2-1.0)
[2023-04-19 09:15] LABS: INR 1.08 (0.83-1.09); PROTHROMBIN TIME (PATIENT) 12.5 SEC (9.7-13.0)
[2023-04-19 09:18] LABS: ACTIVATED PTT 35.8 SECONDS (25.2-36.5)
[2023-04-19 09:25] LABS: POTASSIUM 3.9 mmol/L (3.5-5.1)
[2023-04-19 09:27] LABS: ALBUMIN 4.4 g/dl (3.4-5.0); BLOOD UREA NITROGEN 12.3 mg/dL (7-18); CALCIUM 9.4 mg/dL (8.5-10.1); MAGNESIUM 2.1 mg/dL (1.8-2.4)
[2023-04-19 09:31] LABS: CREATININE 0.7 mg/dL (0.55-1.3); PHOSPHOROUS 2.9 mg/dL (2.5-4.9)
[2023-04-19 09:33] LABS: BILIRUBIN,TOTAL 0.6 mg/dL (0.2-1); TOT PROT 8.2 g/dl (6.4-8.2)
[2023-04-19 09:40] LABS: BASO % 0.4 % (0-2.0); EOS % 0.5 % (0-4.5); HEMOGLOBIN 13.5 GM/dL (10.7-15.3); LYMPH % 5.5 % (8-40); MCH 28.1 pg (25.7-33.7); MEAN CELL VOLUME 85.3 fl (80-96); MEAN PLT VOLUME 9.9 fl (7.5-11.1); MONO % 4.6 % (3.8-10.2); PLATELET COUNT 231 10^3/uL (134-434); RBC 4.81 M/mm3 (3.60-5.2); RDW 13.9 % (11.6-15.6)
[2023-04-19 11:55] VITALS: BP 131/77; PULSE 89
== END 2023-04-19 11:57 | disposition home or self-care (01) ==
LOC: JER 07:21
PROC: 3E0333Z Introduction of Anti-inflammatory into Peripheral Vein, Percutaneous Approach (ICD-10-PCS; principal; 2023-04-19)
PROC: 3E033GC Introduction of Other Therapeutic Substance into Peripheral Vein, Percutaneous Approach (ICD-10-PCS; 2023-04-19)
DX: M79.10 Myalgia, unspecified site (principal); R11.0 Nausea; R20.2 Paresthesia of skin; R68.83 Chills (without fever); R42 Dizziness and giddiness; Z20.822 Contact with and (suspected) exposure to COVID-19
CPT/HCPCS: 0241U-QW; 36415; 71046-TC-FY; 71275-TC; 80053; 81003; 82330; 82803; 83735; 83970; 84100; 84443; 84484; 85025; 85610; 85730; 86850; 86900; 86901; 87086; 87186; 93005; 93010; 99285-25; Q9967

== ENCOUNTER 2024-06-18 15:30 | Day surgery (SDC) | payer OTHER ==
[2024-06-18] MEDS: ACETAMINOPHEN 325 MG TABLET (FP) PO ONE (15:40)
[2024-06-18] MEDS: ZOLEDRONIC ACID/MAN/WATER 5 MG/100 ML INFUS..BTL IVPB ONE (15:50)
[2024-06-18 16:08] VITALS: RESP 20; TEMP 98.6
[2024-06-18 16:29] VITALS: BP 135/47; PULSE 87
== END 2024-06-18 16:31 | disposition home or self-care (01) ==
LOC: J7W 15:30 → JONCNONCHE 15:30
PROVIDERS: ATTEND Internal Medicine Hematology & Oncology
PROC: 3E033GC Introduction of Other Therapeutic Substance into Peripheral Vein, Percutaneous Approach (ICD-10-PCS; principal; 2024-06-18)
DX: M81.6 Localized osteoporosis [Lequesne] (principal); D05.12 Intraductal carcinoma in situ of left breast
CPT/HCPCS: 96365; J3489